=== PATIENT | female | born 1930 | race Caucasian/White ===

== ENCOUNTER 2017-03-08 14:59 | Outpatient (CLI) | payer MEDICARE, OTHER | END 2017-03-08 15:00 | disposition home or self-care (01) | DX: M79.661 Pain in right lower leg (principal) ==

== ENCOUNTER 2017-03-19 13:52 | Outpatient (CLI) | payer MEDICARE, OTHER | END 2017-03-19 13:53 | disposition home or self-care (01) | DX: M17.11 Unilateral primary osteoarthritis, right knee (principal) ==

== ENCOUNTER 2017-04-25 10:01 | Outpatient (CLI) | payer MEDICARE, OTHER | END 2017-04-25 10:02 | disposition home or self-care (01) | DX: E78.5 Hyperlipidemia, unspecified (principal) ==

== ENCOUNTER 2017-05-11 13:24 | Outpatient (CLI) | payer MEDICARE, OTHER | END 2017-05-11 13:25 | disposition home or self-care (01) | LOC: RT 13:24 | PROVIDERS: ATTEND Physician Assistant Medical | DX: R06.09 Other forms of dyspnea (principal) | CPT/HCPCS: 94010; 94729 ==

== ENCOUNTER 2017-05-21 13:51 | Outpatient (CLI) | payer MEDICARE, OTHER | END 2017-05-21 13:52 | disposition home or self-care (01) | LOC: DI.N 13:51 | PROVIDERS: ATTEND Physician Assistant Medical | DX: Z12.31 Encounter for screening mammogram for malignant neoplasm of breast (principal) ==

== ENCOUNTER 2017-06-03 14:18 | Outpatient (CLI) | payer MEDICARE, OTHER ==
[2017-06-03 15:12] LABS: CALCIUM 9.1 mg/dL (8.5-10.3); CREATININE 0.9 mg/dL (0.4-1.0); POTASSIUM 3.8 mmol/L (3.5-5.0)
[2017-06-03] MEDS ORDERED: IOPAMIDOL-300 100 ML VIAL IVP ONE (16:54)
--- NOTE | 2017-06-04 12:20 | CT Report ---
CT CHEST WITH CONTRAST: 06/03/2017 CLINICAL INDICATION: Dyspnea on exertion. COMPARISON: 04/18/2016 TECHNIQUE: Axial CT images of the chest were obtained with 100 mL Isovue-300 intravenously. In accordance with CT protocol optimization, one or more of the following dose reduction techniques w ere utilized for this exam: automated exposure control, adjustment of mA and/or KV based on patient size, or use of iterative reconstructive technique. FINDINGS: The heart and great vessels demonstrate mild atherosclerotic calcification. No hilar or m ediastinal lymphadenopathy is present. The lungs again demonstrate patchy air trapping. A calcified granuloma is noted in the right lower lobe. No suspicious noncalcified pulmonary nodule is apprecia magdy. No focal consolidation, effusion, or pneumothorax. Osseous structures demonstrate degenerative changes. Limited evaluation of upper abdominal structures demonstrates renal cysts. The adrenal gl ands are unremarkable. IMPRESSION: PATCHY AIR TRAPPING, SIMILAR TO PREVIOUS. 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 NO ARACELI DENCE OF ACUTE CARDIOPULMONARY DISEASE. JOB #: [id number] EXT JOB #:[id number]
== END 2017-06-03 14:19 | disposition home or self-care (01) ==
LOC: LAB 14:18
PROVIDERS: ATTEND Physician Assistant Medical
DX: R06.09 Other forms of dyspnea (principal)
CPT/HCPCS: 71260; 80048; Q9967; 36415

== ENCOUNTER 2017-08-13 12:02 | Emergency (ER) | payer MEDICARE, OTHER ==
[2017-08-13 12:14] VITALS: BP 148/76
--- NOTE | 2017-08-13 13:16 | XRAY Preliminary Report ---
Exam: XR Knee 4 View LT IMPRESSION: 1. No acute fracture or bony malalignment. 2. Soft tissue swelling. 3. 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 4. Atherosclerosis. [facility] SITE ID: [id number]
--- NOTE | 2017-08-13 13:19 | XRAY Report ---
EXAM: LEFT KNEE RADIOGRAPHY EXAM DATE: 08/13/2017 12:29 PM. CLINICAL HISTORY: Left knee pain. Fell today. COMPARISON: None available. TECHNIQUE: 4 views. FINDINGS: Left total knee arthroplasty appears well seated in anatomic alignment without loosening. N o acute fracture identified. No subluxation or joint effusion. Vascular calcifications. Ventral soft tissue swelling. IMPRESSION: 1. No acute fracture or bony malalignment. 2. Soft tissue swelling. 3. 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 4. Atherosclerosis. [facility] Referring Provider Line: [phone] SITE ID: [id number]
--- NOTE | 2017-08-13 13:21 | XRAY Preliminary Report ---
Exam: XR Hand 3 View RT IMPRESSION: 1. No acute fracture identified. 2. Soft tissue swelling. 3. Multifocal osteoarthritis, as noted. [facility] SITE ID: [id number]
--- NOTE | 2017-08-13 13:24 | XRAY Report ---
EXAM: RIGHT HAND RADIOGRAPHY EXAM DATE: 08/13/2017 12:29 PM. CLINICAL HISTORY: Right hand injury and pain primarily second and third metacarpal region after fall today. COMPARISON: None. TECHNIQUE: 3 views. FINDINGS: Bones: Mild bone demineralization. No acute fracture identified. The scaphoid is not optimally depict ed due to positioning. Joints: Multifocal moderate to moderately severe osteoarthritis, including first CMC complex, first I P joint, and interphalangeal joints of the digits, worst at the second and fifth DIP joints. No defin ite erosion. Soft Tissues: Dorsal swelling over the wrist and hand. IMPRESSION: 1. No acute fracture identified. 2. Soft tissue swelling. 3. Multifocal osteoarthritis, as noted. [facility] Referring Provider Line: [phone] SITE ID: [id number]
--- NOTE | 2017-08-13 13:38 | ED Physician Documentation ---
PD HPI Fall - Stated complaint Stated Complaint: FELL LT KNEE - Chief complaint Chief Complaint: Ext Problem - History obtained from History obtained from: Patient - History of Present Illness Mechanism of injury: Tripped Fall distance: Standing position Where injury occurred: Other (outside [place] [facility] [place] Timing - onset: How many hours ago (1) Injury(ies) location: Left Lower Extremity (knee), Right Hand Pain level max: 2 Pain level now: 2 Quality of pain: Aching, Dull Associated symptoms: No: LOC, AMS, Amnesia, Seizures, Ear drainage, Nasal drainage, Neck pain, Weakness, Paresthesias, Dyspnea, Nausea / vomiting, Hematemesis Symptoms improve with: Rest Worsens with: Movement, Palpation Contributing factors: No: Anticoagulated, Intoxicated Recently seen: Not recently seen Review of Systems Throat: denies: Sore throat Cardiac: denies: Chest pain / pressure Respiratory: denies: Cough GI: denies: Abdominal Pain, Nausea, Vomiting Musculoskeletal: denies: Neck pain, Back pain Neurologic: denies: Focal weakness, Numbness, Confused, Altered mental status, Headache, Head injury PD PAST MEDICAL HISTORY - Past Medical History Past Medical History: Yes Cardiovascular: Hypertension Respiratory: Other - Past Surgical History Past Surgical History: Yes General: Other Ortho: Knee replacement - Present Medications Home Medications: Ambulatory Orders Medication Instructions Recorded Confirmed Lisinopril 100 mg PO DAILY 08/13/17 08/13/17 Metoprolol Succinate 100 mg PO DAILY 08/13/17 08/13/17 - Allergies Allergies/Adverse Reactions: Allergies Allergy/AdvReac Type Severity Reaction Status Date / Time No Known Drug Allergies Allergy Verified 06/03/17 16:57 - Social History Does the pt smoke?: No Smoking Status: Never smoker PD ED PE NORMAL - Vitals Vital signs reviewed: Yes - General General: Alert and oriented X 3, No acute distress - HEENT HEENT: Atraumatic, PERRL, Ears normal, Moist mucous membranes, Pharynx benign - Neck Neck: Supple, no meningeal sign, No bony TTP - Cardiac Cardiac: RRR, Strong equal pulses - Respiratory Respiratory: No respiratory distress, Clear bilaterally - Abdomen Abdomen: Soft, Non tender, Non distended - Back Back: No spinal TTP - Derm Derm: Warm and dry, No rash - Extremities Extremities: No deformity, Other (Tender to palpation diffusely across the anterior knee, mild swelling. No ecchymosis. Otherwise normal exam of the left lower extremity. Also tenderness over the thenar eminence of the right hand. Full range of motion present, mild pain. Neurovascularly intact. Otherwise normal exam of the hand and wrist including the anatomical snuffbox.) - Neuro Neuro: Alert and oriented X 3 - Psych Psych: Normal mood, Normal affect Results - Vitals Vitals: Vital Signs - 24 hr 08/13/17 12:11 Temperature 36.5 C Heart Rate 55 L Respiratory 16 Rate Blood Pressure 148/76 H O2 Saturation 97 Oxygen O2 Source Room air - Rads (name of study) Right hand x-ray Radiology: Prelim report reviewed, EMP read contemporaneously, See rad report ( No acute fracture. Soft tissue swelling. Multifocal osteoarthritis.) Left knee x-ray Radiology: Prelim report reviewed, EMP read contemporaneously, See rad report ( No acute fracture or bony malalignment. Soft tissue swelling. 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 Atherosclerosis) PD MEDICAL DECISION MAKING - ED course Complexity details: reviewed results, re-evaluated patient, considered differential, d/w patient ED course: Patient is an 86-year-old female who is status post a ground-level fall today, landed on the left knee in the right hand. Negative x-rays. Declines anything for pain here or for home. Ambulating without difficulty. Did not strike her head. No neck or back pain. Patient counseled regarding signs and symptoms for which I believe and urgent re-evaluation would be necessary. Patient with good understanding of and agreement to plan and is comfortable going home at this time This document was made in part using voice recognition software. While efforts are made to proofread this document, sound alike and grammatical errors may occur. Departure - Departure Disposition: Home, Self Care Clinical Impression: Fall Qualifiers: Encounter type: initial encounter Qualified Code(s): W19.XXXA - Unspecified fall, initial encounter Hand contusion Qualifiers: Encounter type: initial encounter Laterality: right Qualified Code(s): S60.221A - Contusion of right hand, initial encounter Knee contusion Qualifiers: Encounter type: initial encounter Laterality: left Qualified Code(s): S80.02XA - Contusion of left knee, initial encounter Condition: Good Instructions: ED Mechanical Fall Follow-Up: Dahlia Marcelo PA-C [Primary Care Provider] - Within 1 week Comments: He can use Motrin or Tylenol as needed for pain. Return if you worsen Your blood pressure was elevated today on check in to the emergency department. This does not mean that you have hypertension, it is a common phenomenon to check into the emergency department and have elevated blood pressure. I recommend that you see your primary care physician within the week to have it rechecked when you're feeling better. Discharge Date/Time: 08/13/17 13:34
== END 2017-08-13 13:34 | disposition home or self-care (01) ==
LOC: ED 12:02
DX: S60.221A Contusion of right hand, initial encounter (principal); S80.02XA Contusion of left knee, initial encounter; W01.0XXA Fall on same level from slipping, tripping and stumbling without subsequent striking against object, initial encounter; Y92.89 Other specified places as the place of occurrence of the external cause; I10 Essential (primary) hypertension; Z96.659 Presence of unspecified artificial knee joint
CPT/HCPCS: 99283

== ENCOUNTER 2017-12-11 08:00 | Outpatient (CLI) | payer MEDICARE, OTHER ==
[2017-12-11 12:57] LABS: BASOPHILS # (AUTO) 0.3 10^3/uL (0.0-0.1); BASOPHILS % (AUTO) 5.6 %; EOSINOPHILS # (AUTO) 0.1 10^3/uL (0.0-0.7); HGB - HEMOGLOBIN 13.5 g/dL (12.0-16.0); LYMPHOCYTES # (AUTO) 2.1 10^3/uL (1.5-3.5); LYMPHOCYTES % (AUTO) 33.6 %; MEAN CORPUSCULAR HEMOGLOBIN 30.6 pg (27.0-31.0); MEAN CORPUSCULAR HGB CONC 32.3 g/dL (32.0-36.0); MEAN CORPUSCULAR VOLUME 94.8 fL (81.0-99.0); MEAN PLATELET VOLUME 8.5 fL (7.9-10.8); MONOCYTES # (AUTO) 0.3 10^3/uL (0.0-1.0); MONOCYTES % (AUTO) 5.6 %; NEUTROPHILS # (AUTO) 3.3 10^3/uL (1.5-6.6); NEUTROPHILS % (AUTO) 53.2 %; PLT - PLATELET COUNT 314 10^3/uL (130-450); RED BLOOD COUNT 4.42 10^6/uL (4.20-5.40); WHITE BLOOD COUNT 6.2 x10^3/uL (4.8-10.8)
[2017-12-11 13:01] LABS: ALBUMIN 4.3 g/dL (3.2-5.5); ALBUMIN/GLOBULIN RATIO 1.3 (1.0-2.2); ALKALINE PHOSPHATASE 76 IU/L (42-121); ALT ALANINE AMINOTRANSFERASE 16 IU/L (10-60); AST ASPARTATE AMINOTRANSFERASE 20 IU/L (10-42); BILIRUBIN,TOTAL 0.6 mg/dL (0.2-1.0); BUN - BLOOD UREA NITROGEN 28 mg/dL (6-20); CALCIUM 9.1 mg/dL (8.5-10.3); CARBON DIOXIDE - CO2 24 mmol/L (21-32); CHLORIDE 107 mmol/L (101-111); CHOL/HDL RATIO 2.9 (<4.4); CHOLESTEROL 194 mg/dL; GFR - MDRD 52 (>89); GLUCOSE 99 mg/dL (70-100); HDL CHOLESTEROL 66 mg/dL; LDL CHOLESTEROL,CALCULATED 102 mg/dL; LDL/HDL RATIO 1.5 (<4.4); SODIUM 137 mmol/L (135-145); TOTAL PROTEIN 7.5 g/dL (6.7-8.2); VLDL CHOLESTEROL 26 mg/dL
== END 2017-12-11 08:01 | disposition home or self-care (01) ==
LOC: LAB.WCP 08:00
PROVIDERS: ATTEND Physician Assistant Medical
DX: I25.10 Atherosclerotic heart disease of native coronary artery without angina pectoris (principal); M19.90 Unspecified osteoarthritis, unspecified site
CPT/HCPCS: 36415; 80053; 80061; 83721; 84550; 85025

== ENCOUNTER 2018-06-25 08:00 | Outpatient (CLI) | payer MEDICARE, OTHER ==
[2018-06-25 13:19] LABS: ALBUMIN 3.9 g/dL (3.2-5.5); ALBUMIN/GLOBULIN RATIO 1.2 (1.0-2.2); ALKALINE PHOSPHATASE 66 IU/L (42-121); ALT ALANINE AMINOTRANSFERASE 15 IU/L (10-60); AST ASPARTATE AMINOTRANSFERASE 20 IU/L (10-42); BILIRUBIN,TOTAL 1.1 mg/dL (0.2-1.0); BUN - BLOOD UREA NITROGEN 24 mg/dL (6-20); CALCIUM 9.1 mg/dL (8.5-10.3); CARBON DIOXIDE - CO2 28 mmol/L (21-32); CHLORIDE 106 mmol/L (101-111); CHOL/HDL RATIO 3.4 (<4.4); CHOLESTEROL 185 mg/dL; CREATININE 1.1 mg/dL (0.4-1.0); GFR - MDRD 47 (>89); GLUCOSE 99 mg/dL (70-100); HDL CHOLESTEROL 55 mg/dL; LDL CHOLESTEROL,CALCULATED 105 mg/dL; LDL/HDL RATIO 1.9 (<4.4); SODIUM 139 mmol/L (135-145); TOTAL PROTEIN 7.1 g/dL (6.7-8.2); VLDL CHOLESTEROL 25 mg/dL
== END 2018-06-25 08:01 | disposition home or self-care (01) ==
LOC: LAB.WCP 08:00
PROVIDERS: ATTEND Physician Assistant Medical
DX: E78.5 Hyperlipidemia, unspecified (principal); M10.9 Gout, unspecified
CPT/HCPCS: 36415; 80053; 80061; 83721; 84550